=== PATIENT | male | born 1950 | race Caucasian/White ===

== ENCOUNTER 2023-02-22 23:59 | Emergency (ER) | payer OTHER, MEDICAID ==
[~2023-02-22] VITALS: Ht 167.6 cm; Wt 66.0 kg
[2023-02-23 00:05] VITALS: BP 159/79; PULSE 66; RESP 20; O2SAT 96
[2023-02-23] MEDS ORDERED: SODIUM CHLORIDE 0.9% 1,000 ML IV ONE (00:30)
[2023-02-23 00:43] LABS: BASOPHILS % 0.5 % (0.0-2.0); EOSINOPHILS % 5.2 % (0.0-5.0); HEMATOCRIT. 38.7 % (42.0-52.0); HEMOGLOBIN. 13.1 g/dL (14.0-18.0); LYMPHOCYTES % 30.8 % (20.0-50.0); MEAN CORPUSCULAR HEMOGLOBIN 29.5 pg (28.0-32.0); MEAN CORPUSCULAR HGB CONC 33.8 g/dL (31.0-37.0); MEAN CORPUSCULAR VOLUME 87.3 fL (80.0-94.0); MEAN PLATELET VOLUME 7.4 fl (7.4-10.4); MONOCYTES % 10.1 % (2.0-8.0); NEUTROPHILS % 53.4 % (40.0-76.0); PLATELET 269 x1000/uL (130-400); RED BLOOD CELL COUNT 4.43 mill/uL (4.7-6.1); WHITE BLOOD COUNT 6.5 x1000/uL (4.5-11.0)
[2023-02-23 00:51] LABS: CHLORIDE 113 mEq/L (98-107); INDEX HEMOLYSI 1 (1-3); INDEX ICTERIC 1 (1-4); INDEX LIPEMIC 1 (1-3); SODIUM 139 mEq/L (136-145)
[2023-02-23 01:01] LABS: ALANINE AMINOTRANSFERASE 20 IU/L (13-61); ALBUMIN 3.3 g/dL (3.4-5.0); ASPARTATE AMINOTRANSFERASE 12 IU/L (15-37); BILIRUBIN TOTAL 0.6 mg/dL (0.1-1.0); CALCIUM 7.9 mg/dL (8.5-10.1); CARBON DIOXIDE 21 mEq/L (21-32); ETHANOL BLOOD < 10 mg/dL (-10); GLUCOSE 159 mg/dL (70-105); PROTEIN TOTAL 6.2 g/dL (6.0-8.3); TROPONIN I HIGH SENSITIVITY 13 ng/L (<78); UREA NITROGEN BLOOD 28 mg/dL (7-21)
[2023-02-23 05:54] LABS: TROPONIN I HIGH SENSITIVITY 10 ng/L (<78)
== END 2023-02-23 08:26 | disposition home or self-care (01) ==
LOC: ER 02-23 00:13
DX: I95.9 Hypotension, unspecified (principal); R42 Dizziness and giddiness; R53.1 Weakness; E11.9 Type 2 diabetes mellitus without complications; E78.00 Pure hypercholesterolemia, unspecified; Z86.73 Personal history of transient ischemic attack (TIA), and cerebral infarction without residual deficits
CPT/HCPCS: 80053; 80320; 83605; 85025; 87040; 84484; 36415; 71045; 70450; 96360; 96361; 99285; J7030; G0480